=== PATIENT | female | born 1985 | race Asian ===

== ENCOUNTER 2017-11-21 21:45 | Emergency (ER) | payer OTHER ==
--- NOTE | 2017-11-21 22:59 | ED Physician Chart ---
ED Chief Complaint/HPI - Patient Information Date Seen:: 11/21/17 Time Seen:: 22:45 Chief Complaint:: umbilical pain History of Present Illness:: At 1730 patient had protuberance and pain of the umbilicus which is now subsided. She had no vomiting. She is pain-free at present. Allergies:: Allergies Allergy/AdvReac Type Severity Reaction Status Date / Time No Known Allergies Allergy Verified 11/21/17 22:45 Vitals:: Vital Signs - 8 hr 11/21/17 22:39 Temp 99.2 F HR 84 RR 16 BP 148/105 O2 Sat % 99 Historian:: Patient Review:: Nurse's Note Reviewed ED Review of Systems - Review of Systems General/Constitutional: No fever, No chills Skin: No skin lesions Head: No headache Eyes: No loss of vision ENT: No earache Neck: No neck pain Cardio Vascular: No chest pain, No palpitations Pulmonary: No SOB GI: Pain G/U: No dysuria Musculoskeletal: No bone or joint pain Endocrine: No polyuria, No polydipsia Psychiatric: No prior psych history, No depression Hematopoietic: No bruising Allergic/Immuno: No urticaria Neurological: No syncope, No focal symptoms ED Past Medical History - Past Medical History Past Medical History: No significant medical hx Family History: Heart disease, Diabetes Melitus Social History: Non Smoker, No Alcohol Surgical History: Psychiatricy History: None Medication: None Family Medical History - Family Member Mother Hx Family Hypertension: Yes ED Physical Exam - Physical Examination General/Constitutional: Well-developed, well-nourished, Alert, No distress Head: Atraumatic Eyes: Lids, conjuctiva normal, PERRL Skin: Nl inspection, No rash ENMT: External ears, nose nl, TM canals nl Neck: No nuchal rigidity Respiratory: Nl effort/Exclusion, Clear to Auscultation Cardio Vascular: RRR, No murmur, gallop, rubs GI: No tenderness/rebounding/guarding, No organomegaly, No hernia, Normal BS's, Nondistended, No mass/bruits Other GI comments:: Umbilicus appears normal; no tenderness; no mass Extremities: Normal digits & nails ED Septic Shock - . Is Septic Shock (SBP<90, OR Lactate>4 mmol\L) present?: No - <6hrs of presentation: Vital Signs: Vital Signs - 8 hr 11/21/17 22:39 Temp 99.2 F HR 84 RR 16 BP 148/105 O2 Sat % 99 ED Reassessment (Disposition) - Reassessment Reassessment:: Patient needs to be referred to general surgeon for possible elective surgery for a reducible umbilical hernia. - Diagnosis Diagnosis:: Reducible umbilical hernia - Aftercare/Follow up Instructions Aftercare/Follow-Up Instructions:: Refer to Discharge Instructions - Patient Disposition Discharge/Transfer:: Home Condition at Disposition:: Stable, Unchanged
== END 2017-11-21 23:35 | disposition home or self-care (01) ==
LOC: ER 21:45
DX: K42.9 Umbilical hernia without obstruction or gangrene (principal)
CPT/HCPCS: Z7502